=== PATIENT | female | born 1955 | race Caucasian/White ===

== ENCOUNTER 2020-10-04 16:40 | Emergency (ER) | payer MEDICARE, OTHER ==
[2020-10-04 16:59] VITALS: BP 143/78
[2020-10-04] MEDS ORDERED: TETANUS,DIPH,PERTUSS(ACELL) VACCINE 0.5 ML SYRINGE IM ONE (20:34)
--- NOTE | 2020-10-04 20:41 | Emergency Department Report ---
ED Laceration HPI - HPI Chief Complaint: Extremity Injury, Upper Stated Complaint: CUT FINGER ON RIGHT HAND Time Seen by Provider: 10/04/20 20:02 Occurred When: Today (35-year-old female that emerge department status post extension of cut with a knife on the lateral aspect of the tip of her finger resulting in continuous bleeding was unable to control with direct pressure so presents emerge department seeking for evaluation and treatment options and also is unsure) Severity: mild Tetanus Status: Not up to Date Laceration Symptoms: Yes Pain, No Numbness, No Weakness ED Review of Systems ROS: Stated complaint: CUT FINGER ON RIGHT HAND Other details as noted in HPI Comment: All other systems reviewed and negative ED Past Medical Hx - Past Medical History Previous Medical History?: No - Surgical History Past Surgical History?: No Laceration Physical Exam - Exam General: Vital signs noted. No distress. Alert and acting appropriately. Wound Length (cm): 1 Laceration Location: Upper Extremity Full Body Front + Back: 1 - Linear laceration to the finger Laceration Exam: Yes Normal Distal CMS, No Foreign Body, No Exposed Tendon, Vessel, or Nerve, No Tendon Injury ED Course Vital Signs 10/04/20 16:56 Temperature 99.1 F Pulse Rate 79 Respiratory 18 Rate Blood Pressure 143/78 O2 Sat by Pulse 98 Oximetry - Procedure Description Procedures done: 65-year-old female with a 1 cm linear laceration to the area was cleaned in aseptic fashion. Dermabond was placed over the laceration and hemostasis was achieved procedure tolerated well Critical care attestation.: If time is entered above; I have spent that time in minutes in the direct care of this critically ill patient, excluding procedure time. ED Disposition Clinical Impression: Finger laceration Disposition: DC-01 TO HOME OR SELFCARE Is pt being admited?: No Does the pt Need Aspirin: No Condition: Stable Instructions: Sutures, Yuval, or Adhesive Wound Closure Additional Instructions: Seen in my department for a simple laceration to the finger he will which was treated with Dermabond. Please keep wound clean and dry and adhere to the adhesive laceration therapy guidelines that were provided to you in his discharge packet. Follow-up with your provider in 3 days for wound evaluation and further treatment Referrals: PRIMARY CARE,MD [Primary Care Provider] - 3-5 Days
== END 2020-10-04 20:55 | disposition home or self-care (01) ==
LOC: ED 16:40
DX: S61.411A Laceration without foreign body of right hand, initial encounter (principal); W26.0XXA Contact with knife, initial encounter; Y93.89 Activity, other specified; Y92.89 Other specified places as the place of occurrence of the external cause; Y99.8 Other external cause status
CPT/HCPCS: 90471; 90715